=== PATIENT | male | born 2000 | race Two or more races ===

== ENCOUNTER 2021-08-22 17:50 | Emergency (ER) | payer SELFPAY ==
[~2021-08-22] VITALS: Ht 177.8 cm; Wt 104.5 kg
[2021-08-22 19:01] LABS: COVID AG,FIA SOURCE NASAL SWAB
[2021-08-22 20:01] VITALS: BP 143/70
== END 2021-08-22 20:30 | disposition home or self-care (01) ==
LOC: EMS 17:52
DX: U07.1 COVID-19 (principal)
CPT/HCPCS: 87426; 99283; U0003